=== PATIENT | female | born 1990 | race Caucasian/White ===

== ENCOUNTER 2021-02-26 16:23 | Emergency (ER) | payer OTHER ==
[2021-02-26 16:33] VITALS: BP 138/93; PULSE 106; RESP 18; TEMP 98
[2021-02-26] MEDS ORDERED: POLYMYXIN B-TRIMETHOPRIM SULF (10,000-1) OPHTH DROPS 10 ML BTL BOTH EYES STA (16:55)
--- NOTE | 2021-02-26 17:01 | ED ---
Eye Problem HPI - General Chief complaint: Eye Problems Stated complaint: conjunctivitis Time Seen by Provider: 02/26/21 16:36 Source: patient Mode of arrival: ambulatory Limitations: no limitations - History of Present Illness Initial comments: 30-year-old female presents to emergency Department with a chief complaint of pinkeye. Patient reports she was exposed recently to person red conjunctivitis and now she is complaining of similar symptoms. Reports she has noticed mild redness in her right eye with some yellow crusting in the morning which has since mostly resolved. She does report some itching but denies any pain with extraocular movements or any swelling or erythema around the eye. Denies any fevers or chills. Denies any gait instability blurry vision. Does not wear contacts. No injuries to the - Related Data Allergies Allergy/AdvReac Type Severity Reaction Status Date / Time No Known Allergies Allergy Verified 02/26/21 16:33 Review of Systems ROS Statement: Those systems with pertinent positive or pertinent negative responses have been documented in the HPI. ROS Other: All systems not noted in ROS Statement are negative. Past Medical History Past Medical History: No Reported History History of Any Multi-Drug Resistant Organisms: None Reported Past Surgical History: No Surgical Hx Reported Past Psychological History: No Psychological Hx Reported Smoking Status: Never smoker Past Alcohol Use History: None Reported Past Drug Use History: None Reported General Exam Limitations: no limitations General appearance: alert, in no apparent distress Head exam: Present: atraumatic, normocephalic, normal inspection Eye exam: Present: normal appearance, PERRL, EOMI, conjunctival injection (Right eye contact but is. Mild crusting, yellow noted. No pain with extraocular movements.) Pupils: Present: normal accommodation ENT exam: Present: normal exam, normal oropharynx, mucous membranes moist, TM's normal bilaterally, normal external ear exam Neck exam: Present: normal inspection, full ROM. Absent: tenderness Respiratory exam: Present: normal lung sounds bilaterally. Absent: respiratory distress Cardiovascular Exam: Present: regular rate, normal rhythm, normal heart sounds Extremities exam: Present: normal inspection, full ROM Back exam: Present: normal inspection, full ROM Neurological exam: Present: alert, oriented X3 Psychiatric exam: Present: normal affect, normal mood Skin exam: Present: warm, dry, intact, normal color Course Vital Signs 02/26/21 16:30 Temperature 98.0 F Pulse Rate 106 H Respiratory 18 Rate Blood Pressure 138/93 O2 Sat by Pulse 98 Oximetry Medical Decision Making - Medical Decision Making 30-year-old female presents to emergency department with a chief complaint of pink eye. On Physical examination, right eye conjunctivitis. I will start him Polytrim. Does not wear eye contacts. PCP follow-up. Disposition Clinical Impression: Conjunctivitis, right eye Disposition: HOME SELF-CARE Condition: Stable Instructions (If sedation given, give patient instructions): Conjunctivitis (ED) Additional Instructions: Applied 1 eyedrop to both eyes 4 times per day. Is patient prescribed a controlled substance at d/c from ED?: No Referrals: None,Stated [Primary Care Provider] - 1-2 days Time of Disposition: 17:01
== END 2021-02-26 17:15 | disposition home or self-care (01) ==
LOC: EC 16:23
DX: H10.9 Unspecified conjunctivitis (principal)
CPT/HCPCS: 99282